=== PATIENT | female | born 1950 | race Caucasian/White ===

== ENCOUNTER 2022-01-03 05:28 | Inpatient (IN) | payer OTHER, MEDICARE ==
[2021-12-31 11:19] LABS: BASOPHILS % (AUTO) 0.6 % (0.0-2.0); EOSINOPHILS # (AUTO) 0.1 K/uL (0.0-0.4); HEMATOCRIT 35.4 % (36-48); LYMPHOCYTES # (AUTO) 2.1 K/uL (1.0-5.5); LYMPHOCYTES % (AUTO) 30.9 % (20.5-51.5); MEAN CORPUSCULAR HEMOGLOBIN 31 pg (27-31); MEAN CORPUSCULAR HGB CONC 34 % (32-36); MEAN CORPUSCULAR VOLUME 91 fL (79.0-98.0); MONOCYTES # (AUTO) 0.9 K/uL (0.0-1.0); MONOCYTES % (AUTO) 13.2 % (1.7-9.3); NEUTROPHILS # (AUTO) 3.7 K/uL (1.8-7.7); NEUTROPHILS % (AUTO) 54.3 % (40.0-70.0); PLATELET COUNT (AUTO) 236 K/uL (130-430); RED BLOOD CELL COUNT(AUTO) 3.88 MIL/uL (4.2-6.2); RED CELL DISTRIBUTION WIDTH 13.3 % (9.0-15.0); WHITE BLOOD COUNT (AUTO) 6.8 K/uL (4.8-10.8)
[2021-12-31 11:44] LABS: INR 0.9 (0.8-1.2); PROTHROMBIN TIME 9.7 SECS (9.5-12.5)
[2021-12-31 12:29] LABS: BILIRUBIN,URINE NEGATIVE (NEGATIVE); BLOOD, URINE NEGATIVE (NEGATIVE); CLARITY/URINE CLEAR (CLEAR); COLOR,URINE YELLOW (YELLOW); GLUCOSE,URINE NEGATIVE (NEGATIVE); KETONES,URINE NEGATIVE (NEGATIVE); LEUKOCYTE ESTERASE ,URINE NEGATIVE (NEGATIVE); NITRITE, URINE NEGATIVE (NEGATIVE); PH,URINE 6.5 (5.0-8.0); PROTEIN URINE NEGATIVE (NEGATIVE); UROBILINOGEN,URINE 0.2 (0.2-1.0)
[2021-12-31 18:01] LABS: ANION GAP 3 (5-15); CHLORIDE 102 mmol/L (98-107); CREATININE 0.68 mg/dL (0.55-1.30); GLUCOSE 97 mg/dL (70-99); POTASSIUM 4.3 mmol/L (3.5-5.1); UREA NITROGEN, BLOOD 15 mg/dL (8-21)
[~2022-01-03] VITALS: Ht 149.9 cm; Wt 67.1 kg
[2022-01-03] MEDS ORDERED: CEFAZOLIN SOD 2 GM in D5W 50 ML IV ONE (07:00)
[2022-01-03] MEDS ORDERED: HYDROmorphone 1 MG/ML INJ. CARTRIDGE IVP PRN ×5 (11:00→12:00)
[2022-01-03] MEDS ORDERED: LORATADINE 10 MG TABLET PO PRN (11:00)
[2022-01-03] MEDS ORDERED: oxyCODONE HCL 5 MG TABLET PO PRN ×2 (11:00)
[2022-01-03] MEDS ORDERED: traMADol HCL HCL 50 MG TABLET (ULTRAM) PO PRN (11:00)
[2022-01-03] MEDS ORDERED: MIDAZOLAM HCL 2 MG/2 ML VIAL (VERSED) ONE (11:07)
[2022-01-03] MEDS ORDERED: METOCLOPRAMIDE HCL 10 MG/2 ML VIAL IVP ONE (11:16)
[2022-01-03] MEDS ORDERED: TRANEXAMIC ACID 1,000 MG/10 ML VIAL IV ONE (11:16)
[2022-01-03] MEDS ORDERED: LR 1,000 ML IV.SOLN IV ONE (11:16)
[2022-01-03] MEDS ORDERED: MIDAZOLAM HCL 5 MG/5 ML VIAL IVP ONE (11:16)
[2022-01-03] MEDS ORDERED: KETOROLAC TROMETHAMINE 30 MG VIAL IVP ONE (11:16)
[2022-01-03] MEDS ORDERED: CEFAZOLIN 2 GM IVPB PREMIX 50 ML IV ONE (11:16)
[2022-01-03] MEDS ORDERED: ONDANSETRON HCL 4 MG/2 ML VIAL IVP ONE (11:16)
[2022-01-03] MEDS ORDERED: PROPOFOL DRIP 10 MG/ML 100ML BOTTLE IV ONE (11:16)
[2022-01-03] MEDS ORDERED: DEXAMETHASONE SOD PHOSPHATE 4 MG/ML VIAL IVP ONE (11:16)
[2022-01-03] MEDS ORDERED: BUPIVACAINE /PF 0.5% 30 ML VIAL INJ ONE (11:16)
[2022-01-03] MEDS ORDERED: PROPOFOL 200MG/ 20ML VIAL (DIPRIVAN) IV ONE (11:16)
[2022-01-03] MEDS ORDERED: ONDANSETRON HCL 4 MG/2 ML VIAL IVP PRN ×2 (11:45→12:00)
[2022-01-03] MEDS ORDERED: ACETAMINOPHEN I.V. 1000 MG 100 ML IV ONE (12:00)
[2022-01-03] MEDS ORDERED: NALOXONE HCL 0.4 MG/ML AMP (NARCAN) IVP PRN ×5 (12:00→13:15)
[2022-01-03] MEDS ORDERED: HYDROmorphone 2 MG/ML VIAL IVP PRN (12:00)
[2022-01-03] MEDS ORDERED: ALEN70SO4 PO (12:02)
[2022-01-03] MEDS ORDERED: DOCU-144 PO (12:02)
[2022-01-03] MEDS ORDERED: OMEP40CA20 PO (12:02)
[2022-01-03] MEDS ORDERED: IBUP-1970 PO (12:02)
[2022-01-03] MEDS ORDERED: BUPIVACAINE LIPOSOME/PF 266 MG/20 ML VIAL INFIL ONE (12:15)
[2022-01-03] MEDS ORDERED: DIPHENHYDRAMINE HCL 25 MG CAPSULE PO PRN (13:15)
[2022-01-03] MEDS ORDERED: LACTULOSE 20 GM/30 ML UDC PO PRN (13:15)
[2022-01-03] MEDS ORDERED: BISACODYL 10 MG/SUPPOSITORY RC PRN (13:15)
[2022-01-03] MEDS ORDERED: METOCLOPRAMIDE HCL 10 MG/2 ML VIAL IVP PRN (13:15)
[2022-01-03] MEDS: ACETAMINOPHEN 500 MG TABLET PO SCH ×2 (14:00→21:45)
[2022-01-03] MEDS: KETOROLAC TROMETHAMINE 10 MG TABLET (TORADOL) PO SCH ×3 (14:00→23:29)
--- NOTE | 2022-01-03 14:13 | NUR ---
Discharge Planning: DCP faxed pt home health referral to [facility] [phone] pending surgery and PT notes, [facility] [phone] for FWW DCP to follow up. Addendum: 01/03/22 at 1551 by Dorene White DP [facility] [phone] accepting patient, [facility] [phone] will deliver FWW to home per medicare guidelines. DCP lm for Apolinar Villagran [phone] eduardo make aware FWW will be delivered to home.
[2022-01-03 15:10] VITALS: BP_SYST 112
--- NOTE | 2022-01-03 15:10 | NUR ---
ADMIT NOTES RECEIVED PATIENT FROM [facility] POSTOP DAY. AWAKE, ALERT/ORIENTED X4. RESPIRATION EVEN AND UNLABORED. NO C/O PAIN AT SURGICAL SITE ,NO SIGNS OF DISTRESS, OR SOB. VITAL SIGNS W/IN NORMAL LIMITS. RIGHT KNEE SURGICAL SITE INTACT, PULSES EQUAL BILATERAL, SKIN WARM TO TOUCH, POLAR ICE TO RIGHT KNEE. NO DRAINAGE NOTES. ABDOMEN SOFT NONDISTENDED POSITIVE BOWEL SOUNDS. IV FLUIDS INFUSING RIGHT HAND PATENT. PATIENT ORIENTED TO ROOM, AT BEDSIDE, CALL LIGHT W/IN REACHED, AND BED IN LOW POSITION; CONTINUE TO MONITOR.
[2022-01-03 15:56] VITALS: BP_SYST 112
[2022-01-03] MEDS: ceFAZolin SODIUM 2 GM in D5W 50 ML IV SCH ×2 (16:21→23:31)
--- NOTE | 2022-01-03 17:00 | NUR ---
ROUNDING PATIENT VOIDED LARGE AMOUNT CLEAR YELLOW URINE ION CHUX
--- NOTE | 2022-01-03 17:08 | NUR ---
PHYSICAL THERAPY AT BEDSIDE TO EVALUATE PATIENT
--- NOTE | 2022-01-03 17:40 | NUR ---
Notes- Patient complain of moderate pain 5/10 level after working with therapy. Medicated as ordered.
--- NOTE | 2022-01-03 18:18 | NUR ---
CLOSING NOTES PATIENT EATING, TOLERATING CLEARS LIQUIDS DIET, PAIN IS CONTROLLED. RIGHT KNEE SURGICAL INTACT, IV INFUSING TO RIGHT HAND PATENT. PATIENT RESTING COMFORTABLE IN BED. ALL SAFETY MEASURES SECURE, BED IN LOW POSITION AND CALL LIGHT W/IN REACHED
--- NOTE | 2022-01-03 19:00 | NUR ---
RECEIVED PT FROM OUTGOING NURSE, SHE IS AWAKE ALERT AND ORIENTED X 4 .VITALS DONE ARE WNL.
[2022-01-03 20:00] VITALS: BP_SYST 111
--- NOTE | 2022-01-03 21:00 | NUR ---
PAIN MEDICATION ADMINISTERED FOR RIGHT KNEE PAIN
[2022-01-03] MEDS: SENNOSIDES/DOCUSATE SODIUM 1 TAB TABLET(SENOKOT-S) PO SCH (21:45)
[2022-01-04 00:08] VITALS: BP_SYST 112
--- NOTE | 2022-01-04 02:00 | NUR ---
SHE IS RESTING QUIETLY IN BED
[2022-01-04 06:00] VITALS: BP_SYST 122
--- NOTE | 2022-01-04 06:00 | NUR ---
PAIN CONTROLLED VS WNL
[2022-01-04 07:39] LABS: BASOPHILS % (AUTO) 0.1 % (0.0-2.0); HEMATOCRIT 30.9 % (36-48); HEMOGLOBIN 10.5 g/dL (12.0-16.0); LYMPHOCYTES # (AUTO) 0.8 K/uL (1.0-5.5); LYMPHOCYTES % (AUTO) 9.1 % (20.5-51.5); MEAN CORPUSCULAR HEMOGLOBIN 31 pg (27-31); MEAN CORPUSCULAR HGB CONC 34 % (32-36); MEAN CORPUSCULAR VOLUME 92 fL (79.0-98.0); MONOCYTES % (AUTO) 10.8 % (1.7-9.3); NEUTROPHILS # (AUTO) 7.4 K/uL (1.8-7.7); PLATELET COUNT (AUTO) 191 K/uL (130-430); RED BLOOD CELL COUNT(AUTO) 3.37 MIL/uL (4.2-6.2); WHITE BLOOD COUNT (AUTO) 9.2 K/uL (4.8-10.8)
[2022-01-04 08:00] VITALS: BP_SYST 133
[2022-01-04] MEDS: ceFAZolin SODIUM 2 GM in D5W 50 ML IV SCH (08:00)
--- NOTE | 2022-01-04 08:00 | NUR ---
INITIAL NOTES RECEIVED PATIENT A/O X4, ABLE TO VERBALIZES NEEDS AND CONCERN. RESPIRATION EVEN AND UNLABORED, NO C/O SOB OR NO SIGNS OF DISTRESS. ABDOMEN SOFT ROUND POSITIVE BOWEL SOUNDS. C/O MILD PAIN TO RIGHT KNEE SURGICAL SITE, NO SIGNS OF DRAINAGES NOTED. IV INFUSING TO RIGHT FOREARM PATENT. ALL SAFETY MEASURES ARE SECURE, CALL LIGHT W/IN REACHED , BED IN LOW POSITION , WILL CONTINUE TO MONITOR
[2022-01-04] MEDS ORDERED: ASA81 PO (08:32)
[2022-01-04] MEDS ORDERED: DEC1 PO (08:32)
[2022-01-04] MEDS ORDERED: CELE200C PO (08:32)
[2022-01-04] MEDS: SENNOSIDES/DOCUSATE SODIUM 1 TAB TABLET(SENOKOT-S) PO SCH (08:35)
[2022-01-04 08:39] LABS: ANION GAP 6 (5-15); CALCIUM 7.7 mg/dL (8.4-11.0); CHLORIDE 107 mmol/L (98-107); CREATININE 0.68 mg/dL (0.55-1.30); GLUCOSE 109 mg/dL (70-99); POTASSIUM 3.6 mmol/L (3.5-5.1); UREA NITROGEN, BLOOD 13 mg/dL (8-21)
[2022-01-04] MEDS ORDERED: DECADRON 4 MG TABLET PO SCH (09:00)
[2022-01-04] MEDS ORDERED: ASPIRIN 81 MG TAB.CHEW PO SCH (09:00)
--- NOTE | 2022-01-04 10:00 | NUR ---
ROUNDING PATIENT AWAKE , NO C/O PAIN, TOLERATING FLUIDS, CONTINUE TO MONITOR
[2022-01-04] MEDS ORDERED: PANTOPRAZOLE SODIUM 40 MG TAB PO ONE (10:45)
[2022-01-04] MEDS ORDERED: CELECOXIB 200 MG CAPSULE PO SCH (11:00)
[2022-01-04 11:55] VITALS: BP_SYST 111
--- NOTE | 2022-01-04 12:00 | NUR ---
ROUNDING PATIENT AWAKE , NO C/O PAIN, AT THIS TIME, FAMILY AT BEDSIDE, ALL SAFETY MEASURES INTACT, CONTINUE TO MONITOR.
[2022-01-04 12:55] VITALS: BP_SYST 111
--- NOTE | 2022-01-04 13:35 | NUR ---
DISCHARGE PATIENT HOME, RIGHT KNEE DRESSING IS DRY AND INTACT. PAIN IS CONTROL. DISCHARGE INSTRUCTION, MEDICATIONS AND FOLLOW UP CARE DISCUSSED WITH PATIENT . PT VERBALIZE UNDERSTANDING. IVL REMOVED. NO DISTRESS.
--- NOTE | 2022-01-06 12:01 | NUR ---
Dispo code 06
== END 2022-01-04 13:40 | disposition home health service (06) | DRG 470 ==
LOC: SMU 05:28 → STU 15:28
PROVIDERS: ADMIT Student in an Organized Health Care Education/Training Program; ATTEND Student in an Organized Health Care Education/Training Program
PROC: 0SRC0J9 Replacement of Right Knee Joint with Synthetic Substitute, Cemented, Open Approach (ICD-10-PCS; principal; 2022-01-03 11:06)
DX: M17.11 Unilateral primary osteoarthritis, right knee (principal); Z20.822 Contact with and (suspected) exposure to COVID-19
CPT/HCPCS: 36415; 71046-TC; 73560-TC; 80048; 81003; 85025; 85610-TC; 85730-TC; 87081; 88305; 88311; 93005; 96379; 97110-GP; 97116-GP; 97530-GP; C9290; G0378; J0131; J0690; J1100; J1170; J1885; J2250; J2405; J2704; J2765; J3465; J3490; J7060; J7120; J8540; U0003

== ENCOUNTER 2024-01-04 09:50 | Outpatient (CLI) | payer OTHER, MEDICARE ==
[~2024-01-04 09:50] MED LIST: ALEN70SO4 PO; ASA81 PO; CELE200C PO; DEC1 PO; DOCU-144 PO; IBUP-1970 PO; OMEP40CA20 PO
== END 2024-01-04 19:53 | disposition home or self-care (01) ==
LOC: SCT 09:50
PROVIDERS: ATTEND Student in an Organized Health Care Education/Training Program
DX: M17.12 Unilateral primary osteoarthritis, left knee (principal)

== ENCOUNTER 2024-01-17 05:30 | Day surgery (SDC) | payer OTHER, MEDICARE ==
[2024-01-09 10:21] LABS: BASOPHILS % (AUTO) 0.7 % (0.0-2.0); EOSINOPHILS # (AUTO) 0.1 K/uL (0.0-0.4); HEMATOCRIT 35.9 % (36-48); LYMPHOCYTES # (AUTO) 1.7 K/uL (1.0-5.5); LYMPHOCYTES % (AUTO) 31.6 % (20.5-51.5); MEAN CORPUSCULAR HEMOGLOBIN 31 pg (27-31); MEAN CORPUSCULAR HGB CONC 33 % (32-36); MEAN CORPUSCULAR VOLUME 92 fL (79.0-98.0); MONOCYTES # (AUTO) 0.7 K/uL (0.0-1.0); MONOCYTES % (AUTO) 14.2 % (1.7-9.3); NEUTROPHILS # (AUTO) 2.8 K/uL (1.8-7.7); NEUTROPHILS % (AUTO) 52.5 % (40.0-70.0); PLATELET COUNT (AUTO) 240 K/uL (130-430); RED BLOOD CELL COUNT(AUTO) 3.92 MIL/uL (4.2-6.2); RED CELL DISTRIBUTION WIDTH 13.3 % (9.0-15.0); WHITE BLOOD COUNT (AUTO) 5.3 K/uL (4.8-10.8)
[2024-01-09 10:30] LABS: PROTHROMBIN TIME 10.3 SECS (9.5-12.5)
[2024-01-09 10:32] LABS: ALANINE AMINOTRANSFERASE 18 U/L (12-78); ALBUMIN 4.1 g/dL (3.4-4.8); ANION GAP 8 (5-15); ASPARTATE AMINOTRANSFERASE 15 U/L (10-37); CALCIUM 8.7 mg/dL (8.4-11.0); CARBON DIOXIDE 27 mmol/L (23-29); CHLORIDE 107 mmol/L (98-107); CREATININE 0.66 mg/dL (0.55-1.30); GLUCOSE 98 mg/dL (74-106); POTASSIUM 3.7 mmol/L (3.5-5.1); SODIUM SERUM 142 mmol/L (136-145); TOTAL BILIRUBIN 0.6 mg/dL (0.0-1.0); UREA NITROGEN, BLOOD 17 mg/dL (8-21)
[~2024-01-17] VITALS: Ht 149.9 cm; Wt 70.0 kg
[2024-01-17] MEDS ORDERED: CELECOXIB 100 MG CAPSULE ONE (05:41)
[2024-01-17] MEDS ORDERED: ACETAMINOPHEN 500 MG TABLET ONE (05:41)
[2024-01-17] MEDS ORDERED: SCOPOLAMINE HYDROBROMIDE 1 MG PATCH .72 H (TRANSDERM-SCOP) TD ONE (05:43)
[2024-01-17] MEDS ORDERED: GABAPENTIN 300 MG CAPSULE ONE (05:44)
[2024-01-17] MEDS: CELECOXIB 100 MG CAPSULE PO ONE (06:10)
[2024-01-17] MEDS: SCOPOLAMINE HYDROBROMIDE 1 MG PATCH .72 H (TRANSDERM-SCOP) TD ONE (06:10)
[2024-01-17] MEDS: GABAPENTIN 300 MG CAPSULE PO ONE (06:10)
[2024-01-17] MEDS: ACETAMINOPHEN 500 MG TABLET PO ONE (06:10)
[2024-01-17] MEDS ORDERED: VANCOMYCIN HCL 1000 MG/VIAL IV ONE (07:00)
[2024-01-17] MEDS ORDERED: fentaNYL CITRATE/PF 100 MCG/2 ML AMP ONE (07:00)
[2024-01-17] MEDS ORDERED: CEFAZOLIN SOD 2 GM in D5W 50 ML IV ONE (07:00)
[2024-01-17] MEDS ORDERED: ONDANSETRON HCL 4 MG/2 ML VIAL ONE (07:00)
[2024-01-17] MEDS ORDERED: oxyCODONE HCL 10 MG TAB.ER.12H PO ONE (07:00)
[2024-01-17] MEDS ORDERED: PROPOFOL 200MG/ 20ML VIAL (DIPRIVAN) IV ONE (07:00)
[2024-01-17] MEDS ORDERED: WATER FOR IRRIGATION,STERILE 1,000 ML IRRIG.SOLN IR ONE (07:00)
[2024-01-17] MEDS ORDERED: LR 1,000 ML IV.SOLN IV ONE (07:00)
[2024-01-17] MEDS ORDERED: BUPIVACAINE /PF 0.25% 30 ML VIAL INJ ONE (07:00)
[2024-01-17] MEDS ORDERED: TRANEXAMIC ACID 1,000 MG/10 ML VIAL ONE (07:00)
[2024-01-17] MEDS ORDERED: DEXAMETHASONE SOD PHOSPHATE 4 MG/ML VIAL ONE (07:00)
[2024-01-17] MEDS ORDERED: BUPIVACAINE /DEX PF 0.75% SPINAL 2 ML AMP INJ ONE (07:00)
[2024-01-17] MEDS ORDERED: ceFAZolin SODIUM 1 GM VIAL ONE (07:00)
[2024-01-17] MEDS ORDERED: MIDAZOLAM HCL 2 MG/2 ML VIAL (VERSED) ONE (07:00)
[2024-01-17] MEDS ORDERED: NS IRRIG SOLN 1000 ML IR ONE (07:00)
[2024-01-17] MEDS: oxyCODONE HCL 10 MG TAB.ER.12H PO ONE (07:02)
[2024-01-17] MEDS ORDERED: LR 1,000 ML IV SCH (08:00)
[2024-01-17] MEDS ORDERED: MEPERIDINE HCL/PF 25 MG/ML DISP.SYRIN IVP PRN (08:00)
[2024-01-17] MEDS ORDERED: HYDROmorphone 1 MG/ML INJ. CARTRIDGE IVP PRN ×4 (08:00→11:00)
[2024-01-17] MEDS ORDERED: METOCLOPRAMIDE HCL 10 MG/2 ML VIAL IVP PRN ×2 (08:00→09:00)
[2024-01-17] MEDS ORDERED: ONDANSETRON HCL 4 MG/2 ML VIAL IVP PRN ×2 (08:00→11:45)
[2024-01-17] MEDS ORDERED: hydrALAZINE HCL 20 MG/ML VIAL IVP PRN (08:00)
[2024-01-17] MEDS ORDERED: LACTULOSE 20 GM/30 ML UDC PO PRN (09:00)
[2024-01-17] MEDS ORDERED: BISACODYL 10 MG/SUPPOSITORY RC PRN (09:00)
[2024-01-17] MEDS ORDERED: DIPHENHYDRAMINE HCL 25 MG CAPSULE PO PRN (09:00)
[2024-01-17] MEDS: TAMSULOSIN HCL 0.4 MG CAP ONE (09:53)
[2024-01-17] MEDS ORDERED: traMADol HCL HCL 50 MG TABLET (ULTRAM) PO PRN (11:00)
[2024-01-17] MEDS ORDERED: oxyCODONE HCL 5 MG TABLET PO PRN ×2 (11:00)
[2024-01-17] MEDS ORDERED: LORATADINE 10 MG TABLET PO PRN (11:00)
[2024-01-17] MEDS ORDERED: TAMSULOSIN HCL 0.4 MG CAP PO ONE (11:15)
[2024-01-17] MEDS ORDERED: ceFAZolin SODIUM 2 GM in D5W 50 ML IV SCH (11:15)
[2024-01-17] MEDS ORDERED: HYDROmorphone 1 MG/ML INJ. CARTRIDGE ONE (11:35)
[2024-01-17] MEDS: HYDROmorphone 1 MG/ML INJ. CARTRIDGE IVP PRN (11:35)
[2024-01-17 12:41] VITALS: BP_SYST 142; PULSE 58; RESP 18; TEMP 97.5; O2SAT 99
[2024-01-17] MEDS ORDERED: ACETAMINOPHEN 500 MG TABLET PO SCH (14:00)
[2024-01-17] MEDS ORDERED: KETOROLAC TROMETHAMINE 10 MG TABLET (TORADOL) PO SCH (14:00)
[2024-01-17] MEDS ORDERED: SENNOSIDES/DOCUSATE SODIUM 1 TAB TABLET(SENOKOT-S) PO SCH (21:00)
[2024-01-18] MEDS ORDERED: TAMSULOSIN HCL 0.4 MG CAP PO SCH (09:00)
[2024-01-18] MEDS ORDERED: ASPIRIN 81 MG TAB.CHEW PO SCH (09:00)
[2024-01-18] MEDS ORDERED: CELECOXIB 200 MG CAPSULE PO SCH (11:00)
== END 2024-01-17 12:30 | disposition home or self-care (01) ==
LOC: SDS 05:30 → SMU 05:30 → SDS 12:30
PROVIDERS: ATTEND Student in an Organized Health Care Education/Training Program
DX: M17.12 Unilateral primary osteoarthritis, left knee (principal); M25.762 Osteophyte, left knee; M25.561 Pain in right knee; K21.9 Gastro-esophageal reflux disease without esophagitis; I70.0 Atherosclerosis of aorta; F12.90 Cannabis use, unspecified, uncomplicated; Z96.651 Presence of right artificial knee joint; Z79.899 Other long term (current) drug therapy; Z98.890 Other specified postprocedural states
CPT/HCPCS: 36415; 71046; 73560; 80053; 85025; 85610; 87081; 88305; 88311; 97110-GP; 97116-GP; 97530-GP; A4649; C1713; C1776; J0690; J0696; J1100; J1171; J2250; J2405; J2704; J3010; J3370; J3490; J7060; J7120